=== PATIENT | male | born 2000 | race Caucasian/White ===

== ENCOUNTER 2023-01-10 08:27 | Outpatient (REF) | payer OTHER, SELFPAY ==
--- NOTE | ~2023-01-10 | XR_ITS ---
EXAMINATION: XR WRIST, LEFT CLINICAL INFORMATION: Pain in the left wrist. COMPARISON: None available. TECHNIQUE: PA, lateral, and oblique views of the left wrist. FINDINGS: Question subtle deformity of the subchondral bone of the distal radius. Additionally, there appears to be cortical irregularity dorsally of the distal radius. The remaining bones and joints are unremarkable. XR/XR wrist LT min 3V IMPRESSION: Question subtle deformity of the subchondral bone and posterior cortex of the distal radius. This could reflect a subtle minimally displaced/nondisplaced age indeterminate fracture. Consider follow-up imaging with CT to further characterize if felt clinically necessary.
== END 2023-01-10 08:28 | disposition home or self-care (01) ==
LOC: HO.HOSX 08:27
PROVIDERS: Visit Provider Physician Assistant
DX: S62.102A Fracture of unspecified carpal bone, left wrist, initial encounter for closed fracture (principal)
CPT/HCPCS: 73110; 99202

== ENCOUNTER 2023-01-10 09:47 | Outpatient (AMB) | payer OTHER, SELFPAY ==
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
[2023-01-10 10:09] VITALS: BMI 26.6
== END 2023-01-10 10:54 | disposition home or self-care (01) ==
PROVIDERS: PCP Internal Medicine; Visit Provider Physician Assistant
DX: S62.102A Fracture of unspecified carpal bone, left wrist, initial encounter for closed fracture (principal)
CPT/HCPCS: 99203